=== PATIENT | female | born 2005 | race Two or more races ===

== ENCOUNTER → 2025-01-22 | Emergency (ER) | payer OTHER ==
[~2025-01-22] VITALS: Ht 157.5 cm; Wt 56.7 kg
[~2025-01-22] MED LIST: 0.9 % SODIUM CHLORIDE 500 ML IV SCH; XULANE PATCH1 EACH
[2025-01-22 13:27] LABS: INR 0.99
[2025-01-22 13:51] LABS: BASO % 0.3 % (0.1-1.2); EOS # 0.03 (0.04-0.54); EOS % 0.5 % (0.7-7.0); LYMPH # 2.20 (1.18-3.74); LYMPH % 38.3 % (19.3-53.1); MONO # 0.54 (0.24-0.82); MONO % 9.4 % (4.7-12.5); NEUT # 2.94 (1.56-6.13); NEUT % 51.2 % (34.0-71.1); RED CELL DISTRIBUTION WIDTH 11.6 % (11.6-14.4)
[2025-01-22 14:42] LABS: BAND MAN 1.0 %; NEUTROPHILS MAN 46.0 %
[2025-01-22 14:43] LABS: LYMPHOCYTE MAN 43.0 %; MONOCYTE MAN 3.0 %
[2025-01-22 16:00] LABS: ALT/SGPT 89 U/L (12-78); AST/SGOT 167 U/L (15-37); BILIRUBIN TOTAL 0.66 mg/dL (0.3-1.2); BUN CREA RATIO 10 (7.0-25.0); CREATININE SERUM 0.70 mg/dL (0.55-1.02); GFR 107.80; GLOBULINA 3.8 G/DL (2.4-3.5); GLUCOSE FASTING 84 mg/dL (65-100); OSMOLALITY SERUM 275 MOSM/KG (275-295)
[2025-01-22 16:30] LABS: COVID-19 AG NEGATIVE (NEGATIVE)
== END | disposition designated cancer center or children's hospital (05) ==
LOC: ER 10:56 → EMR PED 11:14 → ER 11:14
PROVIDERS: Pediatrics
DX: R23.3 Spontaneous ecchymoses (principal); Z20.822 Contact with and (suspected) exposure to COVID-19